=== PATIENT | male | born 1965 | race Caucasian/White ===

== ENCOUNTER 2017-01-25 17:24 | Emergency (ER) | payer MEDICARE, OTHER ==
[~2017-01-25] VITALS: Ht 180.3 cm; Wt 77.1 kg
[~2017-01-25 17:24] MED LIST: IBUPROFEN600 MG PO
== END 2017-01-25 18:37 | disposition home or self-care (01) ==
LOC: ED 17:24
DX: F22 Delusional disorders (principal); Z87.891 Personal history of nicotine dependence
CPT/HCPCS: 99283

== ENCOUNTER 2017-02-09 18:35 | Emergency (ER) | payer MEDICARE, OTHER ==
[~2017-02-09] VITALS: Ht 180.3 cm; Wt 86.2 kg
== END 2017-02-09 19:57 | disposition home or self-care (01) ==
LOC: ED 18:35
DX: F28 Other psychotic disorder not due to a substance or known physiological condition (principal); Z87.891 Personal history of nicotine dependence
CPT/HCPCS: 99282

== ENCOUNTER 2018-09-07 11:26 | Emergency (ER) | payer MEDICARE, OTHER ==
[~2018-09-07] VITALS: Ht 180.3 cm; Wt 86.2 kg
--- OUTSIDE RECORDS SUMMARY | 2018-09-07 11:28 | XMS ---
PreManage Notification: ARIC LYLES Security Family Support Coordinator Events No recent Security Events currently on file CRITERIA MET - Group Notification CARE PROVIDERS There are no care providers on record at this time. Jose has no Care Guidelines for this patient. [place] VISIT COUNT (12 MO.) 2 [facility] TOTAL 2 NOTE: Visits indicate total known visits. ED/UCC VISIT TRACKING (12 MO.) 09/07/2018 11:26 [facility] [place] TYPE: Emergency COMPLAINT: - MEDICAL CLEARANCE 03/07/2018 17:[address] [facility] [place] TYPE: Emergency COMPLAINT: - PSYCH EVALUATION DIAGNOSES: - Delusional disorders - Brief psychotic disorder - Personal history of nicotine dependence INPATIENT VISIT TRACKING (12 MO.) No inpatient visits to display in this time frame [id number]
== END 2018-09-07 11:58 | disposition home or self-care (01) ==
LOC: ED 11:26
DX: Z00.8 Encounter for other general examination (principal)

== ENCOUNTER 2020-06-24 16:37 | Emergency (ER) | payer MEDICARE, OTHER ==
[~2020-06-24] VITALS: Ht 180.3 cm; Wt 86.2 kg
--- OUTSIDE RECORDS SUMMARY | 2020-06-24 16:40 | XMS ---
PreManage Notification: ARIC LYLES Security Recreation Therapy Director Events No recent Security Events currently on file CRITERIA MET - Group Notification CARE PROVIDERS There are no care providers on record at this time. Jose has no Care Guidelines for this patient. [place] VISIT COUNT (12 MO.) 1 [facility] TOTAL 1 NOTE: Visits indicate total known visits. ED/UCC VISIT TRACKING (12 MO.) 06/24/2020 16:38 [facility] [place] TYPE: Emergency COMPLAINT: - LT CALF HURTING INPATIENT VISIT TRACKING (12 MO.) No inpatient visits to display in this time frame [id number]
== END 2020-06-24 17:17 | disposition home or self-care (01) ==
LOC: ED 16:37
DX: S86.112A Strain of other muscle(s) and tendon(s) of posterior muscle group at lower leg level, left leg, initial encounter (principal); X58.XXXA Exposure to other specified factors, initial encounter
CPT/HCPCS: 99283

== ENCOUNTER 2022-06-16 08:38 | Emergency (ER) | payer MEDICARE, OTHER ==
[~2022-06-16] VITALS: Ht 180.3 cm; Wt 86.2 kg
--- OUTSIDE RECORDS SUMMARY | 2022-06-16 08:43 | XMS ---
PreManage Notification: ARIC LYLES Security Animal Husbandry Teacher Events No recent Security Events currently on file CRITERIA MET - Group Notification CARE PROVIDERS There are no care providers on record at this time. Jose has no Care Guidelines for this patient. [place] VISIT COUNT (12 MO.) 1 [facility] TOTAL 1 NOTE: Visits indicate total known visits. ED/C VISIT TRACKING (12 MO.) 06/16/2022 08:39 [facility] [place] TYPE: Emergency COMPLAINT: - FOREIGN OBJECT IN L EAR INPATIENT VISIT TRACKING (12 MO.) No inpatient visits to display in this time frame [id number]
== END 2022-06-16 09:15 | disposition home or self-care (01) ==
LOC: ED 08:38
DX: H65.92 Unspecified nonsuppurative otitis media, left ear (principal)
CPT/HCPCS: 99282; A9270

== ENCOUNTER 2023-10-14 22:30 | Emergency (ER) | payer MEDICARE, OTHER ==
[~2023-10-14] VITALS: Ht 180.3 cm; Wt 95.7 kg
--- OUTSIDE RECORDS SUMMARY | 2023-10-14 22:32 | XMS ---
PreManage Notification: ARIC LYLES Security Pulling Machine Operator Events No recent Security Events currently on file CRITERIA MET - Group Notification CARE PROVIDERS There are no care providers on record at this time. Jose has no Care Guidelines for this patient. [place] VISIT COUNT (12 MO.) 1 [facility] TOTAL 1 NOTE: Visits indicate total known visits. ED/C VISIT TRACKING (12 MO.) 10/14/2023 22:30 [facility] [place] TYPE: Emergency COMPLAINT: - INDEX FINGER INJURY INPATIENT VISIT TRACKING (12 MO.) No inpatient visits to display in this time frame [id number]
[2023-10-15 00:25] VITALS: BP 127/80
== END 2023-10-15 00:27 | disposition home or self-care (01) ==
LOC: ED 22:30
DX: S61.200A Unspecified open wound of right index finger without damage to nail, initial encounter (principal); W22.8XXA Striking against or struck by other objects, initial encounter
CPT/HCPCS: 73140; 99283

== ENCOUNTER 2023-11-09 22:10 | Emergency (ER) | payer MEDICARE, OTHER ==
[~2023-11-09] VITALS: Ht 180.3 cm; Wt 95.4 kg
--- OUTSIDE RECORDS SUMMARY | 2023-11-09 22:11 | XMS ---
PreManage Notification: ARIC LYLES Security Media Specialist Events No recent Security Events currently on file CRITERIA MET - Group Notification - [facility] - 2 Visits in 30 Days CARE PROVIDERS There are no care providers on record at this time. Jose has no Care Guidelines for this patient. [place] VISIT COUNT (12 MO.) 2 [facility] TOTAL 2 NOTE: Visits indicate total known visits. ED/C VISIT TRACKING (12 MO.) [facility] COMPLAINT: - FINGER PAIN 10/14/2023 22:[address] [facility] [place] TYPE: Emergency COMPLAINT: - INDEX FINGER INJURY DIAGNOSES: - Abrasion of right index finger, initial encounter - Striking against or struck by other objects, initial encounter - Unspecified open wound of right index finger without damage to nail, initial encounter - Unspecified open wound of right index finger without damage to nail, initial encounter INPATIENT VISIT TRACKING (12 MO.) No inpatient visits to display in this time frame [id number]
[2023-11-09 22:27] VITALS: BP 123/75
== END 2023-11-09 22:28 | disposition home or self-care (01) ==
LOC: ED 22:10
DX: S61.210D Laceration without foreign body of right index finger without damage to nail, subsequent encounter (principal); X58.XXXA Exposure to other specified factors, initial encounter
CPT/HCPCS: 99282